=== PATIENT | male | born 1990 | race African-American/Black ===

== ENCOUNTER 2017-04-25 17:48 | Emergency (ER) | payer OTHER ==
--- NOTE | 2017-04-25 18:49 | ED Physician Documentation ---
PD HPI UPPER EXT INJURY - Stated complaint Stated Complaint: R HAND INJURY - Chief complaint Chief Complaint: Ext Problem - History obtained from History obtained from: Patient - History of Present Illness Location: Right, Hand Type of injury: Blunt / blow (punched an object in anger, with pain and swelling of right hand ulnar side.) Where injury occurred: Home Timing - onset: Today Timing - details: Abrupt onset, Still present Worsened by: Moving, Palpating Associated symptoms: Swelling. No: Weakness, Numbness Contributing factors: No: Anticoagulated Similar symptoms before: Has not had sx before Recently seen: Not recently seen Review of Systems Skin: denies: Abrasion (s), Laceration (s) Musculoskeletal: denies: Neck pain, Back pain Neurologic: denies: Focal weakness, Numbness PD PAST MEDICAL HISTORY - Past Medical History Past Medical History: No Neuro: None - Past Surgical History Past Surgical History: No - Present Medications Home Medications: Ambulatory Orders Medication Instructions Recorded Confirmed No Known Home Medications [No 04/25/17 04/25/17 Known Home Medications] - Allergies Allergies/Adverse Reactions: Allergies Allergy/AdvReac Type Severity Reaction Status Date / Time No Known Drug Allergies Allergy Verified 04/25/17 17:57 - Social History Does the pt smoke?: Yes Smoking Status: Current every day smoker Does the pt drink ETOH?: Yes Does the pt have substance abuse?: Yes Substance Use and Type: Marijuana PD ED PE NORMAL - Vitals Vital signs reviewed: Yes - General General: Alert and oriented X 3, No acute distress, Well developed/nourished - Derm Derm: Normal color, Warm and dry - Extremities Extremities: Other (right hand with local pain, tender, swelling over area of 4th/5th MC shaft to base area. He can flex and extend fingers but painful to hand. No obvious malrotation of the finger. ) - Neuro Neuro: Alert and oriented X 3, No motor deficit, No sensory deficit, Normal speech Results - Vitals Vitals: Vital Signs - 24 hr 04/25/17 04/25/17 17:54 19:43 Temperature 37.2 C Heart Rate 78 58 L Respiratory 18 16 Rate Blood Pressure 123/68 111/61 O2 Saturation 100 99 Oxygen O2 Source Room air - Rads (name of study) right hand Radiology: Prelim report reviewed, EMP read contemporaneously (fracture base of the 5th MC. ) Procedures - Splint (location) right hand 5th MC Splint applied by: Tech Type of splint: Fiberglass Other: Patient tolerated well, No complications, Neurovascular intact, Sling provided PD MEDICAL DECISION MAKING - ED course Complexity details: reviewed results, re-evaluated patient, considered differential, d/w patient Departure - Departure Disposition: 01 Home, Self Care Clinical Impression: Closed fracture of 5th metacarpal Qualifiers: Encounter type: initial encounter Metacarpal location: base Fracture alignment : nondisplaced Laterality: right Qualified Code(s): S62.346A - Nondisplaced fracture of base of fifth metacarpal bone, right hand, initial encounter for closed fracture Condition: Stable Record reviewed to determine appropriate education?: Yes Instructions: ED Fx Boxer Follow-Up: Kaleb Olguin MD [Provider Admit Priv/Credential] - Comments: Use a splint for the hand. Sling to provide elevation and comfort. Ice periodically to reduce swelling. Ibuprofen 3 times a day for the next several days to week. Add Tylenol if needed. Follow-up with orthopedics for change of the splint which will not fit snugly once the swelling goes down and also to reevaluate if it is healing adequately with just splinting. Call tomorrow for an appointment for about a week from now. He will likely be in the splint for about a month for her to fully heal. Discharge Date/Time: 04/25/17 19:43
--- NOTE | 2017-04-25 19:00 | XRAY Preliminary Report ---
Exam: XR HAND 3 VIEW RT IMPRESSION: Fifth metacarpal base fracture with probable intra-articular extension. [facility] SITE ID: [id number]
--- NOTE | 2017-04-25 19:00 | XRAY Report ---
EXAM: RIGHT HAND RADIOGRAPHY EXAM DATE: 04/25/2017 06:50 PM. CLINICAL HISTORY: Punch wall two days ago, Hand swollen/limited ROM. COMPARISON: None. TECHNIQUE: 3 views. FINDINGS: Bones: Fracture of the fifth metacarpal base with approximately 1 cortex width displacement and likel y intra-articular extension. No additional fracture. Joints: Normal. No subluxations. Soft Tissues: Prominent soft tissue swelling. IMPRESSION: Fifth metacarpal base fracture with probable intra-articular extension. [facility] Referring Provider Line: [phone] SITE ID: [id number]
[2017-04-25] MEDS ORDERED: ACETAMINOPHEN 325 MG TABLET PO STA (19:02)
[2017-04-25] MEDS ORDERED: IBUPROFEN 600 MG TABLET PO STA (19:02)
[2017-04-25 19:44] VITALS: BP 111/61
== END 2017-04-25 19:43 | disposition home or self-care (01) ==
LOC: ED 17:48
DX: S62.316A Displaced fracture of base of fifth metacarpal bone, right hand, initial encounter for closed fracture (principal); W22.09XA Striking against other stationary object, initial encounter; Y92.009 Unspecified place in unspecified non-institutional (private) residence as the place of occurrence of the external cause; F17.200 Nicotine dependence, unspecified, uncomplicated
CPT/HCPCS: 29125; 73130; 99283; A9270